=== PATIENT | female | born 1935 | race Caucasian/White ===

== ENCOUNTER 2022-07-20 09:20 | Outpatient (CLI) | payer MEDICARE | END 2022-07-20 09:21 | disposition home or self-care (01) | LOC: CSHULT 09:20 | PROVIDERS: ATTEND Family Medicine | DX: R10.12 Left upper quadrant pain (principal); K80.20 Calculus of gallbladder without cholecystitis without obstruction; N28.1 Cyst of kidney, acquired | CPT/HCPCS: 76700 ==